=== PATIENT | female | born 1975 | race Caucasian/White ===

== ENCOUNTER 2017-10-21 10:10 | Outpatient (CLI) | payer BC ==
--- NOTE | 2017-10-21 12:59 | ULT ---
TRANSABDOMINAL AND TRANSVAGINAL PELVIC ULTRASOUND: INDICATIONS: Abdominal distention. TECHNIQUE: Ruiz-scale, color Doppler, and spectral Doppler images were obtained of the pelvis via a transabdomin al and transvaginal approach. FINDINGS: The uterus measures 10.3 x 5.2 x 6.4 cm. There is a heterogeneous appearance to the uterus, consiste nt with underlying fibroid disease. There is a large fibroid within the posterior uterine body, hedy uring 3.3 x 3.2 cm. The endometrial stripe measured 8 mm. The visualized ovaries appear within normal limits. There is normal flow. The right ovary measures 2.5 x 1.6 x 2.7 cm. The left ovary measures 3.1 x 2.5 x 2.5 cm. There is a small follicular cyst wi thin the left ovary, measuring 2.6 cm. Small follicles are present within the right ovary. No free fluid is evident. IMPRESSION: 1. Fibroid uterus. 2. Left ovarian cyst. POS: [facility]
--- NOTE | 2017-10-21 13:04 | ULT ---
ABDOMINAL ULTRASOUND: 10/21/2017 HISTORY: Abdominal distention. TECHNIQUE: Multiple longitudinal and transverse images of the abdomen are obtained using a Multi-Hertz curviline ar transducer. Real-time, color-flow, and spectral wave-form Doppler analysis are used to evaluate t he abdomen. FINDINGS: Normal hepatopetal flow is seen in the portal system. The liver is unremarkable. The gallbladder is within normal limits. No evidence of gallstones seen. The gallbladder wall is unremarkable. The c ommon bile duct is not significantly dilated. The common bile duct has a diameter of approximately 2 .7 mm. The spleen is unremarkable. No evidence of ascites is seen. The abdominal aorta and the inferior ve na cava are suboptimally visualized due to overlying bowel gas. Both kidneys are of normal contour, axis, and size, with the right kidney measuring 10.8 and the left kidney measuring 9.8 cm from pole to pole. IMPRESSION: Normal abdominal ultrasound. POS: [facility]
== END 2017-10-21 10:11 | disposition home or self-care (01) ==
LOC: SCSULT 10:10
PROVIDERS: ATTEND Family Medicine
DX: D25.9 Leiomyoma of uterus, unspecified (principal); N83.202 Unspecified ovarian cyst, left side
CPT/HCPCS: 76700; 76856

== ENCOUNTER 2018-10-27 09:32 | Outpatient (CLI) | payer OTHER ==
[2018-10-27] MEDS ORDERED: ISOVUE-370 76%-LOCM 1 ML ONE (11:31)
--- NOTE | 2018-10-27 12:30 | CT ---
CT ABDOMEN AND PELVIS WITH ORAL AND IV CONTRAST: Date: 10/27/18 HISTORY: Right upper quadrant pain. Renal cancer with partial nephrectomy in 1995. COMPARISON: 03/28/15. FINDINGS: A few tiny low density lesions in the liver are better seen on the current exam compared to the previ ous study, likely unchanged. No calcified gallstones are seen. The spleen, pancreas, and adrenal glan ds are normal. Postop changes of right partial nephrectomy are again seen. The left kidney and the re mainder of the right kidney are otherwise normal. No free air, free fluid, or lymphadenopathy seen in the abdomen or pelvis. There are enhancing foci i n the uterus, likely fibroids. The small bowel loops are not abnormally dilated. There is fecal material in the colon. IMPRESSION: 1. Postop changes of right nephrectomy. No evidence of tumor recurrence or metastatic disease. 2. Uterine fibroids. 3. Constipation. POS: [facility]
== END 2018-10-27 09:33 | disposition home or self-care (01) ==
LOC: BICCT 09:32
PROVIDERS: ATTEND Internal Medicine Gastroenterology
DX: R10.11 Right upper quadrant pain (principal); K59.00 Constipation, unspecified; D25.9 Leiomyoma of uterus, unspecified; Z90.5 Acquired absence of kidney; Z98.890 Other specified postprocedural states; Z88.0 Allergy status to penicillin
CPT/HCPCS: 74177

== ENCOUNTER 2018-11-16 07:27 | Outpatient (CLI) | payer BC ==
--- NOTE | 2018-11-16 10:44 | NM ---
HEPATOBILIARY SCAN: Date: 11/16/18 COMPARISON: None HISTORY: Right upper quadrant pain, bloating and indigestion. TECHNIQUE: Following the intravenous administration of 5.3 mCi technetium 99m labeled mebrofenin, ant erior planar imaging is obtained over 1 hour. Patient ingested 8 oz. of Ensure to calculate the ejection fraction of the gallbladder. FINDINGS: There is prompt radiotracer activity within the liver on post injection imaging. Biliary activity is seen by 5 minutes. Gallbladder activity is seen by 10-15 minutes. Small bowel activity is seen by 20 minutes. Gallbladder ejection fraction is 75%, within normal limits. IMPRESSION: Unremarkable hepatobiliary scan. Transcribed Date/Time: 11/16/2018 10:48 AM
== END 2018-11-16 07:28 | disposition home or self-care (01) ==
LOC: NM 07:27
PROVIDERS: ATTEND Internal Medicine Gastroenterology
DX: R10.11 Right upper quadrant pain (principal)
CPT/HCPCS: 78227; A9537